=== PATIENT | male | born 1975 | race Caucasian/White ===

== ENCOUNTER 2020-09-15 07:46 | Emergency (ER) | payer BC ==
[2020-09-15 07:55] VITALS: BP 153/100; PULSE 88; TEMP 98; BMI 29.0
[2020-09-15] MEDS ORDERED: ACETAMINOPHEN 1000 MG/100 ML VIAL (NON FORMULARY) IVPB ONE (07:58)
[2020-09-15] MEDS ORDERED: ONDANSETRON 4 MG/2 ML VIAL IVPUSH ONE (07:58)
[2020-09-15] MEDS ORDERED: SODIUM CHLORIDE 1,000 ML IV STA (07:58)
[2020-09-15] MEDS ORDERED: ONDANSETRON 4 MG/2 ML VIAL ONE (08:36)
[2020-09-15] MEDS ORDERED: ACETAMINOPHEN INJECTION 100 ML IVPB ONE (08:37)
[2020-09-15 09:12] LABS: BASO % 1.1 % (0-2.0); EOS % 0.2 % (0-4.5); HEMATOCRIT 45.3 % (35.4-49); HEMOGLOBIN 15.7 GM/dL (11.7-16.9); MCH 32.1 pg (25.7-33.7); MCHC 34.5 g/dl (32.0-35.9); MEAN CELL VOLUME 92.9 fl (80-96); MEAN PLT VOLUME 8.1 fl (7.5-11.1); NEUT % 77.7 % (42.8-82.8); PLATELET COUNT 302 K/MM3 (134-434); RBC 4.88 M/mm3 (4.00-5.60); RDW 13.4 % (11.9-15.9); WHITE BLOOD COUNT 6.7 K/mm3 (4.0-10.0)
[2020-09-15 09:34] LABS: CHLORIDE 103 mmol/L (98-107); POTASSIUM 3.9 mmol/L (3.5-5.1); SODIUM 137 mmol/L (136-145)
[2020-09-15 09:35] LABS: CALCIUM 9.1 mg/dL (8.5-10.1); GLUCOSE,RANDOM 115 mg/dL (74-106)
[2020-09-15 09:37] LABS: ALBUMIN 4.6 g/dl (3.4-5.0); ANION GAP 7 MMOL/L (8-16); BLOOD UREA NITROGEN 11.6 mg/dL (7-18); CO2 27 mmol/L (21-32)
[2020-09-15 09:39] LABS: SGOT/AST 19 U/L (15-37); SGPT/ALT 41 U/L (13-61)
[2020-09-15 09:40] LABS: BILIRUBIN,TOTAL 0.8 mg/dL (0.2-1)
[2020-09-15 09:42] LABS: ALK PHOS 67 U/L (45-117)
== END 2020-09-15 11:20 | disposition home or self-care (01) ==
LOC: JER 07:46
PROC: 3E0333Z Introduction of Anti-inflammatory into Peripheral Vein, Percutaneous Approach (ICD-10-PCS; principal; 2020-09-15)
PROC: 3E033GC Introduction of Other Therapeutic Substance into Peripheral Vein, Percutaneous Approach (ICD-10-PCS; 2020-09-15)
PROC: 3E0337Z Introduction of Electrolytic and Water Balance Substance into Peripheral Vein, Percutaneous Approach (ICD-10-PCS; 2020-09-15)
DX: U07.1 COVID-19 (principal)
CPT/HCPCS: 36415; 71046-TC-FY; 80053; 82550; 83605; 84484; 85025; 93005; 93010; 99285-25; J0131